=== PATIENT | female | born 1990 | race African-American/Black ===

== ENCOUNTER 2022-06-05 08:00 | Outpatient (CLI) | payer OTHER | END 2022-06-05 23:59 | disposition home or self-care (01) | LOC: LAB.N 08:00 | PROVIDERS: ATTEND Physician Assistant | DX: L05.01 Pilonidal cyst with abscess (principal) | CPT/HCPCS: 87070; 87205 ==

== ENCOUNTER 2023-07-12 14:00 | Outpatient (CLI) | payer OTHER ==
--- NOTE | 2023-07-13 02:09 | XRAY Report ---
PROCEDURE: Chest 2V INDICATIONS: BRONCHITIS TECHNIQUE: 2 views of the chest were obtained. COMPARISON: None. FINDINGS: Surgical changes and devices: None. Lungs and pleura: No pleural effusions or pneumothorax. Lungs are clear. Mediastinum: Mediastinal contours appear normal. Heart size is normal. Bones and chest wall: No suspicious bony lesions. Overlying soft tissues appear unremarkable. IMPRESSION: Normal two-view chest x-ray Reviewed by: Serjio Gutierrez MD on 07/13/2023 1:08 AM ABHI Approved by: Srejio Gutierrez MD on 07/13/2023 1:08 AM ABHI Station ID: [id number]
== END 2023-07-12 14:15 | disposition home or self-care (01) ==
LOC: DI.N 14:00
PROVIDERS: ATTEND Physician Assistant Medical
DX: J40 Bronchitis, not specified as acute or chronic (principal)